=== PATIENT | male | born 2005 | race Caucasian/White ===

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

== ENCOUNTER 2023-08-11 11:52 | Emergency (ER) | payer BC ==
[~2023-08-11] VITALS: Ht 180.3 cm; Wt 81.6 kg
[~2023-08-11 11:52] MED LIST: OMEP40CA20 PO; ONDA-8 TL
[2023-08-11] MEDS ORDERED: ONDANSETRON HCL 4 MG/2 ML VIAL IVP ONE (13:30)
[2023-08-11] MEDS ORDERED: NACL 0.9% 1,000 ML IV ONE (13:30)
[2023-08-11 13:39] VITALS: BP_SYST 120; PULSE 105; RESP 18; TEMP 98.8; O2SAT 99
[2023-08-11 14:10] LABS: BASOPHILS # (AUTO) 0.1 K/uL (0.0-0.2); BASOPHILS % (AUTO) 0.5 % (0.0-2.0); EOSINOPHILS % (AUTO) 0.2 % (0.0-4.0); HEMATOCRIT 52.5 % (36-54); HEMOGLOBIN 18.1 g/dL (14.0-18.0); LYMPHOCYTES # (AUTO) 2.6 K/uL (1.0-5.5); LYMPHOCYTES % (AUTO) 18.5 % (20.5-51.5); MEAN CORPUSCULAR HEMOGLOBIN 29 pg (27-31); MEAN CORPUSCULAR HGB CONC 35 % (32-36); MEAN CORPUSCULAR VOLUME 85 fL (79.0-98.0); MONOCYTES # (AUTO) 1.3 K/uL (0.0-1.0); MONOCYTES % (AUTO) 9.3 % (1.7-9.3); NEUTROPHILS % (AUTO) 71.5 % (40.0-70.0); PLATELET COUNT (AUTO) 283 K/uL (130-430); RED CELL DISTRIBUTION WIDTH 13.3 % (9.0-15.0)
[2023-08-11] MEDS ORDERED: MORPHINE 4 MG INJ. 4 MG/ML VIAL IVP ONE ×2 (14:15→15:45)
[2023-08-11 14:23] LABS: ALBUMIN 4.8 g/dL (3.4-4.8); BILIRUBIN,DIRECT 0.3 mg/dL (0.0-0.3); CALCIUM 9.9 mg/dL (8.4-11.0); CREATININE 1.31 mg/dL (0.55-1.30); TOTAL BILIRUBIN 1.2 mg/dL (0.0-1.0); TOTAL PROTEIN, SERUM 8.3 g/dL (6.4-8.3)
[2023-08-11 14:26] LABS: POTASSIUM 2.6 mmol/L (3.5-5.1)
[2023-08-11] MEDS ORDERED: POTASSIUM CHLORIDE 20 MEQ TABLET.ER PO ONE (14:45)
[2023-08-11] MEDS ORDERED: KCL 20 mEq in 100 mL (PREMIX) 100 ML IV ONE (14:45)
[2023-08-11] MEDS ORDERED: DIPHENHYDRAMINE INJ 50 MG/ML VIAL IVP ONE ×2 (15:45→16:00)
[2023-08-11] MEDS ORDERED: METOCLOPRAMIDE HCL 10 MG/2 ML VIAL IVP ONE (15:45)
[2023-08-11] MEDS ORDERED: DIPHENHYDRAMINE INJ 50 MG/ML VIAL ONE (16:05)
[2023-08-11] MEDS ORDERED: ONDA-8 TL (16:40)
[2023-08-11 17:17] VITALS: BP_SYST 123; PULSE 110; RESP 22; TEMP 98.7; O2SAT 97
== END 2023-08-11 17:10 | disposition home or self-care (01) ==
LOC: SED 11:52
DX: R10.13 Epigastric pain (principal); R11.2 Nausea with vomiting, unspecified; E87.6 Hypokalemia; Z79.899 Other long term (current) drug therapy
CPT/HCPCS: 99285; 74177; 96365; 96375; 96361; 80076; 80048; 83690; 85025; 36415; 76376; 96376; J1200; J2765; J2405; J3480; J2270; Q9967; J7030

== ENCOUNTER 2024-02-07 08:16 | Inpatient (IN) | payer BC ==
[~2024-02-07] VITALS: Ht 170.2 cm; Wt 86.2 kg
[2024-02-07 08:19] VITALS: BP_SYST 124; PULSE 105; RESP 18; TEMP 98.3; O2SAT 98
[2024-02-07] MEDS: ONDANSETRON 4 MG ODT TAB PO ONE (08:46)
[2024-02-07 08:55] LABS: BASOPHILS % (AUTO) 0.2 % (0.0-2.0); HEMATOCRIT 47.6 % (36-54); HEMOGLOBIN 17.1 g/dL (14.0-18.0); LYMPHOCYTES # (AUTO) 1.4 K/uL (1.0-5.5); LYMPHOCYTES % (AUTO) 10.9 % (20.5-51.5); MEAN CORPUSCULAR HEMOGLOBIN 30 pg (27-31); MEAN CORPUSCULAR HGB CONC 36 % (32-36); MEAN CORPUSCULAR VOLUME 84 fL (79.0-98.0); MONOCYTES # (AUTO) 1.1 K/uL (0.0-1.0); MONOCYTES % (AUTO) 8.4 % (1.7-9.3); NEUTROPHILS # (AUTO) 10.3 K/uL (1.8-7.7); NEUTROPHILS % (AUTO) 80.5 % (40.0-70.0); PLATELET COUNT (AUTO) 237 K/uL (130-430); RED BLOOD CELL COUNT(AUTO) 5.66 MIL/uL (4.2-6.2); RED CELL DISTRIBUTION WIDTH 14.1 % (9.0-15.0); WHITE BLOOD COUNT (AUTO) 12.8 K/uL (4.5-11.0)
[2024-02-07 09:11] LABS: INR 1.3 (0.80-1.20); PROTHROMBIN TIME 13.1 SECS (9.5-12.5)
[2024-02-07 09:30] LABS: ALANINE AMINOTRANSFERASE 41 U/L (12-78); ALBUMIN 4.7 g/dL (3.4-4.8); AMYLASE 40 U/L (0-100); ANION GAP 17 (5-15); ASPARTATE AMINOTRANSFERASE 26 U/L (10-37); BILIRUBIN,DIRECT 0.2 mg/dL (0.0-0.3); CALCIUM 9.9 mg/dL (8.4-11.0); CARBON DIOXIDE 23 mmol/L (23-29); CHLORIDE 100 mmol/L (98-107); CREATININE 1.32 mg/dL (0.55-1.30); GFR AFRICAN AMERICAN 89 mL/min (>90); GLUCOSE 124 mg/dL (74-106); LIPASE 30 U/L (16-77); SODIUM SERUM 140 mmol/L (136-145); TOTAL BILIRUBIN 0.9 mg/dL (0.0-1.0); TOTAL PROTEIN, SERUM 8.3 g/dL (6.4-8.3); UREA NITROGEN, BLOOD 13 mg/dL (8-21)
[2024-02-07 09:31] LABS: GFR NON AFRICAN-AMERICAN 73 mL/min (>90)
[2024-02-07 09:33] LABS: POTASSIUM 2.7 mmol/L (3.5-5.1)
[2024-02-07] MEDS: ONDANSETRON HCL 4 MG/2 ML VIAL IVP ONE (09:44)
[2024-02-07] MEDS: POTASSIUM CHLORIDE 20 MEQ/PKT PACKET PO ONE (09:44)
[2024-02-07] MEDS: NACL 0.9% 1,000 ML IV ONE (09:44)
[2024-02-07] MEDS: HALOPERIDOL LACTATE 5 MG/ML VIAL IM ONE (09:45)
[2024-02-07 09:55] LABS: ACETONE, SERUM NEGATIVE (NEGATIVE)
[2024-02-07] MEDS: D5NS 1,000 ML IV SCH (11:45)
[2024-02-07 12:41] VITALS: BP_SYST 155; PULSE 89; RESP 20
[2024-02-07] MEDS ORDERED: ACETAMINOPHEN 325 MG TABLET PO PRN (13:30)
[2024-02-07] MEDS ORDERED: NALOXONE HCL 0.4 MG/ML AMP (NARCAN) IVP PRN (13:30)
[2024-02-07] MEDS ORDERED: MORPHINE 2 MG/ML INJ. SYRINGE IVP PRN (13:30)
[2024-02-07] MEDS: MORPHINE 2 MG/ML INJ. SYRINGE IVP PRN (13:38)
[2024-02-07 14:28] VITALS: O2SAT 99
[2024-02-07 16:00] VITALS: BP_SYST 145; PULSE 84; RESP 18; TEMP 98.8; O2SAT 98
[2024-02-07] MEDS: PANTOPRAZOLE SODIUM 40 MG TAB PO ONE (17:16)
[2024-02-07 17:56] LABS: BILIRUBIN,URINE 1+ (NEGATIVE); BLOOD, URINE NEGATIVE (NEGATIVE); CLARITY/URINE CLEAR (CLEAR); COLOR,URINE YELLOW (YELLOW); GLUCOSE,URINE NEGATIVE (NEGATIVE); KETONES,URINE 2+ (NEGATIVE); LEUKOCYTE ESTERASE ,URINE NEGATIVE (NEGATIVE); NITRITE, URINE NEGATIVE (NEGATIVE); PROTEIN URINE 1+ (NEGATIVE); UROBILINOGEN,URINE 0.2 (0.2-1.0)
[2024-02-07 18:15] LABS: BACTERIA,URINE RARE /HPF (None Seen); MUCUS,URINE 1+ /LPF (None Seen); RBC,URINE NONE SEEN /HPF (0-3); WBC,URINE 0-3 /HPF (0-3)
[2024-02-07] MEDS ORDERED: POTASSIUM CHLORIDE 40 MEQ in NS 250 ML IV ONE (19:45)
[2024-02-07 20:00] VITALS: BP_SYST 118; PULSE 82; RESP 18; TEMP 98.4; O2SAT 95
[2024-02-07] MEDS: KCL 20 mEq in 100 mL (PREMIX) 100 ML IV NR (20:31)
[2024-02-07] MEDS: ONDANSETRON HCL 4 MG/2 ML VIAL IVP PRN (21:44)
[2024-02-08 06:38] LABS: BASOPHILS % (AUTO) 0.4 % (0.0-2.0); EOSINOPHILS % (AUTO) 0.2 % (0.0-4.0); HEMATOCRIT 45.5 % (36-54); LYMPHOCYTES # (AUTO) 1.9 K/uL (1.0-5.5); LYMPHOCYTES % (AUTO) 22.7 % (20.5-51.5); MEAN CORPUSCULAR HEMOGLOBIN 30 pg (27-31); MEAN CORPUSCULAR HGB CONC 35 % (32-36); MEAN CORPUSCULAR VOLUME 85 fL (79.0-98.0); MONOCYTES # (AUTO) 0.7 K/uL (0.0-1.0); MONOCYTES % (AUTO) 8.6 % (1.7-9.3); NEUTROPHILS # (AUTO) 5.8 K/uL (1.8-7.7); NEUTROPHILS % (AUTO) 68.1 % (40.0-70.0); PLATELET COUNT (AUTO) 204 K/uL (130-430); RED BLOOD CELL COUNT(AUTO) 5.36 MIL/uL (4.2-6.2); WHITE BLOOD COUNT (AUTO) 8.4 K/uL (4.5-11.0)
[2024-02-08 07:19] LABS: CALCIUM 9.1 mg/dL (8.4-11.0); CREATININE 1.29 mg/dL (0.55-1.30); PHOSPHORUS 2.6 mg/dL (2.7-4.5); POTASSIUM 3.6 mmol/L (3.5-5.1)
[2024-02-08 08:00] VITALS: BP_SYST 122; PULSE 94; RESP 18; TEMP 98.9; O2SAT 100; O2SAT 99
[2024-02-08] MEDS: MIDAZOLAM HCL 5 MG/5 ML VIAL ONE (08:42)
[2024-02-08] MEDS: SIMETHICONE 40 MG/0.6 ML ML ONE (08:42)
[2024-02-08] MEDS: MEPERIDINE 100 MG INJ. 100 MG/ML VIAL ONE (08:42)
[2024-02-08] MEDS: DIPHENHYDRAMINE INJ 50 MG/ML VIAL ONE (08:43)
[2024-02-08] MEDS ORDERED: PANTOPRAZOLE SODIUM 40 MG TAB PO SCH (09:00)
[2024-02-08] MEDS: PANTOPRAZOLE SODIUM 40 MG TAB PO SCH (09:00)
[2024-02-08 12:00] VITALS: BP_SYST 122; PULSE 88; RESP 18; TEMP 98.6; O2SAT 99
[2024-02-08] MEDS ORDERED: ACETAMINOPHEN 325 MG TABLET PO PRN ×2 (13:45→14:00)
[2024-02-08] MEDS ORDERED: NALOXONE HCL 0.4 MG/ML AMP (NARCAN) IVP PRN ×2 (13:45)
[2024-02-08] MEDS: HYDROcodone/ACETAMIN 10-325 MG TAB PO PRN (14:58)
[2024-02-08 16:00] VITALS: BP_SYST 124; PULSE 84; RESP 16; TEMP 98.6; O2SAT 99
[2024-02-08 19:00] VITALS: O2SAT 100
[2024-02-08 20:00] VITALS: BP_SYST 116; PULSE 90; RESP 18; TEMP 97.5; O2SAT 95
[2024-02-08] MEDS: HYDROcodone/ACETAMIN 5-325 MG TAB (NORCO/ VICODIN) PO PRN (21:58)
[2024-02-09 00:41] VITALS: BP_SYST 109; PULSE 66; RESP 18; TEMP 97.2; O2SAT 97
[2024-02-09] MEDS: LORazepam 2 MG/ML VIAL IVP PRN (04:29)
[2024-02-09 06:00] LABS: ALBUMIN 4.4 g/dL (3.4-4.8); CALCIUM 9.3 mg/dL (8.4-11.0); CREATININE 1.16 mg/dL (0.55-1.30); POTASSIUM 3.7 mmol/L (3.5-5.1); TOTAL PROTEIN, SERUM 7.8 g/dL (6.4-8.3)
[2024-02-09 06:01] LABS: BASOPHILS % (AUTO) 0.3 % (0.0-2.0); EOSINOPHILS % (AUTO) 0.2 % (0.0-4.0); HEMATOCRIT 49.5 % (36-54); HEMOGLOBIN 17.3 g/dL (14.0-18.0); LYMPHOCYTES # (AUTO) 1.6 K/uL (1.0-5.5); LYMPHOCYTES % (AUTO) 14.2 % (20.5-51.5); MEAN CORPUSCULAR HEMOGLOBIN 30 pg (27-31); MEAN CORPUSCULAR HGB CONC 35 % (32-36); MEAN CORPUSCULAR VOLUME 85 fL (79.0-98.0); MONOCYTES # (AUTO) 0.7 K/uL (0.0-1.0); MONOCYTES % (AUTO) 6.6 % (1.7-9.3); NEUTROPHILS # (AUTO) 8.8 K/uL (1.8-7.7); NEUTROPHILS % (AUTO) 78.7 % (40.0-70.0); PLATELET COUNT (AUTO) 219 K/uL (130-430); RED BLOOD CELL COUNT(AUTO) 5.82 MIL/uL (4.2-6.2); WHITE BLOOD COUNT (AUTO) 11.1 K/uL (4.5-11.0)
[2024-02-09 08:17] VITALS: BP_SYST 133; PULSE 93; RESP 18; TEMP 96.9; O2SAT 95
[2024-02-09 09:30] VITALS: O2SAT 95
[2024-02-09 12:30] VITALS: BP_SYST 128; PULSE 87; RESP 18; TEMP 97.1; O2SAT 97
[2024-02-09 16:45] VITALS: BP_SYST 126; PULSE 78; RESP 20; TEMP 97.2; O2SAT 95
[2024-02-09] MEDS ORDERED: DEXTROSE 50% JECT 50 ML DISP.SYRIN IVP PRN (17:00)
[2024-02-09] MEDS ORDERED: INSULIN REGULAR, HUMAN 100 UNITS/ML, 3 ML VIAL (humuLIN R) SUBCUT PRN (17:00)
[2024-02-09] MEDS ORDERED: GLUCOSE (DEXTROSE) ORAL GEL -Adults PO PRN (17:00)
[2024-02-09 20:00] VITALS: BP_SYST 133; PULSE 92; RESP 20; TEMP 98.6; O2SAT 95
[2024-02-09] MEDS: INSULIN GLARGINE 100 UNITS/ML, 10 ML VIAL SUBCUT SCH (22:31)
[2024-02-10] VITALS: BP_SYST 131; PULSE 90; RESP 20; TEMP 98.4; O2SAT 96
[2024-02-10 01:58] LABS: CANNABINOID, URINE POSITIVE (NEG <=50)
[2024-02-10 01:59] LABS: BARBITURATE, URINE NEGATIVE (NEG <=200); BENZODIAZEPINE, URINE POSITIVE (NEG <=150); COCAINE, URINE NEGATIVE (NEG <=150); METHAMPHETAMINES SCREEN,URINE NEGATIVE (NEG <=500); OPIATE, URINE POSITIVE (NEG <=100); PHENCYCLIDINE SCREEN,URINE NEGATIVE (NEG <=25); UR TRICYCLIC ANTIDEPRESSANTS NEGATIVE (NEG <=300); URINE AMPHETAMINE NEGATIVE (NEG <=500); URINE METHADONE NEGATIVE (NEG <=200); URINE OXYCODONE SCREEN NEGATIVE (NEG <=100)
[2024-02-10 06:44] LABS: BASOPHILS % (AUTO) 0.3 % (0.0-2.0); EOSINOPHILS % (AUTO) 0.5 % (0.0-4.0); HEMATOCRIT 46.9 % (36-54); HEMOGLOBIN 16.2 g/dL (14.0-18.0); LYMPHOCYTES # (AUTO) 1.4 K/uL (1.0-5.5); MEAN CORPUSCULAR HEMOGLOBIN 30 pg (27-31); MEAN CORPUSCULAR HGB CONC 35 % (32-36); MEAN CORPUSCULAR VOLUME 86 fL (79.0-98.0); MONOCYTES # (AUTO) 0.8 K/uL (0.0-1.0); MONOCYTES % (AUTO) 10.7 % (1.7-9.3); NEUTROPHILS # (AUTO) 5.5 K/uL (1.8-7.7); NEUTROPHILS % (AUTO) 70.5 % (40.0-70.0); PLATELET COUNT (AUTO) 195 K/uL (130-430); RED BLOOD CELL COUNT(AUTO) 5.47 MIL/uL (4.2-6.2); RED CELL DISTRIBUTION WIDTH 14.3 % (9.0-15.0); WHITE BLOOD COUNT (AUTO) 7.8 K/uL (4.5-11.0)
[2024-02-10 07:32] LABS: ALBUMIN 3.8 g/dL (3.4-4.8); CALCIUM 8.7 mg/dL (8.4-11.0); CREATININE 1.14 mg/dL (0.55-1.30); POTASSIUM 3.2 mmol/L (3.5-5.1); TOTAL BILIRUBIN 0.7 mg/dL (0.0-1.0)
[2024-02-10] MEDS: POTASSIUM CHLORIDE 20 MEQ TABLET.ER PO ONE (13:59)
[2024-02-10 20:00] VITALS: O2SAT 98
[2024-02-10 22:00] VITALS: BP_SYST 120; PULSE 62; RESP 18; TEMP 97.6
[2024-02-11] VITALS: BP_SYST 116; PULSE 61; RESP 18; TEMP 97.8; O2SAT 97
[2024-02-11 05:49] LABS: BASOPHILS % (AUTO) 0.7 % (0.0-2.0); EOSINOPHILS # (AUTO) 0.1 K/uL (0.0-0.4); EOSINOPHILS % (AUTO) 1.9 % (0.0-4.0); HEMATOCRIT 45.8 % (36-54); HEMOGLOBIN 15.8 g/dL (14.0-18.0); LYMPHOCYTES # (AUTO) 2.9 K/uL (1.0-5.5); LYMPHOCYTES % (AUTO) 41.7 % (20.5-51.5); MEAN CORPUSCULAR HEMOGLOBIN 30 pg (27-31); MEAN CORPUSCULAR HGB CONC 35 % (32-36); MEAN CORPUSCULAR VOLUME 86 fL (79.0-98.0); MONOCYTES # (AUTO) 0.6 K/uL (0.0-1.0); MONOCYTES % (AUTO) 8.7 % (1.7-9.3); NEUTROPHILS # (AUTO) 3.3 K/uL (1.8-7.7); PLATELET COUNT (AUTO) 187 K/uL (130-430); RED BLOOD CELL COUNT(AUTO) 5.32 MIL/uL (4.2-6.2); RED CELL DISTRIBUTION WIDTH 14.1 % (9.0-15.0)
[2024-02-11 06:48] LABS: ALBUMIN 3.7 g/dL (3.4-4.8); CREATININE 1.37 mg/dL (0.55-1.30); POTASSIUM 3.7 mmol/L (3.5-5.1); TOTAL BILIRUBIN 0.7 mg/dL (0.0-1.0); TOTAL PROTEIN, SERUM 6.8 g/dL (6.4-8.3)
[2024-02-11 08:00] VITALS: BP_SYST 131; PULSE 85; RESP 20; TEMP 97.1; O2SAT 99
[2024-02-11 12:03] VITALS: BP_SYST 128; PULSE 74; RESP 18; TEMP 98.2; O2SAT 98
[2024-02-11 13:26] VITALS: BP_SYST 128; PULSE 85; RESP 20; TEMP 97.1; O2SAT 99
[2024-02-11] MEDS ORDERED: METF-379 PO (13:38)
[2024-02-11] MEDS ORDERED: ONDA-8 TL (13:38)
[2024-02-11] MEDS ORDERED: INSU100I75 SUBCUT (13:38)
[2024-02-11] MEDS ORDERED: PRO40 PO (13:38)
== END 2024-02-11 14:30 | disposition home or self-care (01) | DRG 638 ==
LOC: SED 08:16 → SMU 10:25
PROVIDERS: ADMIT Preventive Medicine Preventive Medicine/Occupational Environmental Medicine; ATTEND Specialist
PROC: 0DB68ZX Excision of Stomach, Via Natural or Artificial Opening Endoscopic, Diagnostic (ICD-10-PCS; principal; 2024-02-08 08:45)
DX: E11.65 Type 2 diabetes mellitus with hyperglycemia (principal); N17.9 Acute kidney failure, unspecified; R65.10 Systemic inflammatory response syndrome (SIRS) of non-infectious origin without acute organ dysfunction; K20.90 Esophagitis, unspecified without bleeding; F12.188 Cannabis abuse with other cannabis-induced disorder; E87.6 Hypokalemia; K29.70 Gastritis, unspecified, without bleeding; K76.0 Fatty (change of) liver, not elsewhere classified; D72.829 Elevated white blood cell count, unspecified; K42.9 Umbilical hernia without obstruction or gangrene; Z79.899 Other long term (current) drug therapy; Z88.8 Allergy status to other drugs, medicaments and biological substances
CPT/HCPCS: 36415; 43239; 71045; 74018; 76700; 80048; 80053; 80076; 80307; 81000; 81001; 81015; 82009; 82150; 82948; 83037; 83605; 83690; 83735; 84100; 84132; 85025; 85610; 85730; 87040; 87086; 88305; 88312; 88313; 96361; 96374; 99285; J1200; J1815; J2060; J2175; J2250; J2270; J2405; J3480; Q0162; Q9967

== ENCOUNTER 2024-04-08 22:31 | Emergency (ER) | payer BC ==
[~2024-04-08] VITALS: Ht 170.2 cm; Wt 86.2 kg
[~2024-04-08 22:31] MED LIST changes: +INSU100I75 SUBCUT; +METF-379 PO; -OMEP40CA20 PO; +PRO40 PO
[2024-04-08 22:42] VITALS: PULSE 83; RESP 22; TEMP 98; O2SAT 100
[2024-04-08] MEDS: NACL 0.9% 1,000 ML IV ONE (23:50)
[2024-04-08] MEDS: ONDANSETRON HCL 4 MG/2 ML VIAL IVP ONE (23:52)
[2024-04-08] MEDS: MORPHINE 4 MG INJ. 4 MG/ML VIAL IVP ONE (23:54)
[2024-04-08] MEDS: HALOPERIDOL LACTATE 5 MG/ML VIAL IM ONE (23:57)
[2024-04-09 00:29] LABS: BASOPHILS # (AUTO) 0.1 K/uL (0.0-0.2); BASOPHILS % (AUTO) 0.5 % (0.0-2.0); HEMATOCRIT 50.9 % (36-54); HEMOGLOBIN 17.8 g/dL (14.0-18.0); LYMPHOCYTES # (AUTO) 0.8 K/uL (1.0-5.5); LYMPHOCYTES % (AUTO) 6.1 % (20.5-51.5); MEAN CORPUSCULAR HEMOGLOBIN 31 pg (27-31); MEAN CORPUSCULAR HGB CONC 35 % (32-36); MEAN CORPUSCULAR VOLUME 87 fL (79.0-98.0); MONOCYTES # (AUTO) 0.4 K/uL (0.0-1.0); MONOCYTES % (AUTO) 3.4 % (1.7-9.3); NEUTROPHILS # (AUTO) 11.2 K/uL (1.8-7.7); PLATELET COUNT (AUTO) 245 K/uL (130-430); RED BLOOD CELL COUNT(AUTO) 5.83 MIL/uL (4.2-6.2); RED CELL DISTRIBUTION WIDTH 14.2 % (9.0-15.0); WHITE BLOOD COUNT (AUTO) 12.5 K/uL (4.5-11.0)
[2024-04-09 01:09] LABS: ALBUMIN 5.3 g/dL (3.4-4.8); BILIRUBIN,DIRECT 0.2 mg/dL (0.0-0.3); CALCIUM 10.7 mg/dL (8.4-11.0); CREATININE 1.33 mg/dL (0.55-1.30); POTASSIUM 3.6 mmol/L (3.5-5.1); TOTAL PROTEIN, SERUM 8.8 g/dL (6.4-8.3)
[2024-04-09] MEDS: NACL 0.9% 1,000 ML IV ONE (02:18)
[2024-04-09] MEDS: MORPHINE 4 MG INJ. 4 MG/ML VIAL IVP ONE (02:19)
[2024-04-09] MEDS: ONDANSETRON HCL 4 MG/2 ML VIAL IVP ONE (02:22)
[2024-04-09] MEDS ORDERED: ONDA-8 TL (03:13)
[2024-04-09 03:27] VITALS: BP_SYST 125; PULSE 90; RESP 20; TEMP 98.6; O2SAT 97
== END 2024-04-09 03:20 | disposition home or self-care (01) ==
LOC: SED 22:31
DX: R11.15 Cyclical vomiting syndrome unrelated to migraine (principal); D72.828 Other elevated white blood cell count; N17.9 Acute kidney failure, unspecified; Z88.5 Allergy status to narcotic agent; F12.90 Cannabis use, unspecified, uncomplicated; Z88.8 Allergy status to other drugs, medicaments and biological substances; Z79.899 Other long term (current) drug therapy; Z79.2 Long term (current) use of antibiotics
CPT/HCPCS: 99285; 96374; 96361 ×2; 96375; 80076; 80048; 83690; 85025; 36415; 96376; J2405 ×2; J2270 ×2; J7030 ×2; J1630

== ENCOUNTER 2024-05-03 16:06 | Emergency (ER) | payer BC ==
[~2024-05-03] VITALS: Ht 165.1 cm; Wt 72.6 kg
[2024-05-03 16:09] VITALS: BP_SYST 135; PULSE 133; RESP 18; TEMP 98.3; O2SAT 98
[2024-05-03 17:01] LABS: BASOPHILS # (AUTO) 0.1 K/uL (0.0-0.2); HEMOGLOBIN 17.9 g/dL (14.0-18.0); MEAN CORPUSCULAR HEMOGLOBIN 30 pg (27-31); WHITE BLOOD COUNT (AUTO) 13.2 K/uL (4.5-11.0)
[2024-05-03 17:05] LABS: BASOPHILS % (AUTO) 0.7 % (0.0-2.0); HEMATOCRIT 51.2 % (36-54); LYMPHOCYTES # (AUTO) 2.7 K/uL (1.0-5.5); LYMPHOCYTES % (AUTO) 20.2 % (20.5-51.5); MEAN CORPUSCULAR HGB CONC 35 % (32-36); MEAN CORPUSCULAR VOLUME 86 fL (79.0-98.0); MONOCYTES # (AUTO) 1.6 K/uL (0.0-1.0); MONOCYTES % (AUTO) 11.8 % (1.7-9.3); NEUTROPHILS # (AUTO) 8.9 K/uL (1.8-7.7); NEUTROPHILS % (AUTO) 67.3 % (40.0-70.0); PLATELET COUNT (AUTO) 247 K/uL (130-430); RED BLOOD CELL COUNT(AUTO) 5.92 MIL/uL (4.2-6.2); RED CELL DISTRIBUTION WIDTH 13.7 % (9.0-15.0)
[2024-05-03 17:13] LABS: ALBUMIN 5.1 g/dL (3.4-4.8); CALCIUM 10.3 mg/dL (8.4-11.0); CREATININE 1.48 mg/dL (0.55-1.30); POTASSIUM 3.4 mmol/L (3.5-5.1); TOTAL PROTEIN, SERUM 8.6 g/dL (6.4-8.3)
[2024-05-03] MEDS: ONDANSETRON HCL 4 MG/2 ML VIAL IVP ONE (19:00)
[2024-05-03] MEDS: NACL 0.9% 1,000 ML IV ONE (19:00)
[2024-05-03] MEDS ORDERED: ONDANSETRON HCL 4 MG/2 ML VIAL ONE (21:40)
[2024-05-03 22:32] LABS: BILIRUBIN,URINE 1+ (NEGATIVE); BLOOD, URINE NEGATIVE (NEGATIVE); CLARITY/URINE CLEAR (CLEAR); COLOR,URINE YELLOW (YELLOW); GLUCOSE,URINE NEGATIVE (NEGATIVE); KETONES,URINE 2+ (NEGATIVE); LEUKOCYTE ESTERASE ,URINE NEGATIVE (NEGATIVE); NITRITE, URINE NEGATIVE (NEGATIVE); PH,URINE 6.5 (5.0-8.0); PROTEIN URINE TRACE (NEGATIVE); UROBILINOGEN,URINE 0.2 (0.2-1.0)
[2024-05-03] MEDS ORDERED: ONDA-8 TL (22:36)
[2024-05-03] MEDS ORDERED: CEPH250C PO (22:42)
[2024-05-03 22:50] LABS: BARBITURATE, URINE NEGATIVE (NEG <=200); BENZODIAZEPINE, URINE NEGATIVE (NEG <=150); CANNABINOID, URINE POSITIVE (NEG <=50); COCAINE, URINE NEGATIVE (NEG <=150); METHAMPHETAMINES SCREEN,URINE NEGATIVE (NEG <=500); OPIATE, URINE NEGATIVE (NEG <=100); PHENCYCLIDINE SCREEN,URINE NEGATIVE (NEG <=25); URINE AMPHETAMINE NEGATIVE (NEG <=500); URINE METHADONE NEGATIVE (NEG <=200); URINE OXYCODONE SCREEN NEGATIVE (NEG <=100)
[2024-05-03 22:51] LABS: UR TRICYCLIC ANTIDEPRESSANTS NEGATIVE (NEG <=300)
[2024-05-03 22:52] LABS: RBC,URINE NONE SEEN /HPF (0-3)
[2024-05-03 22:53] LABS: BACTERIA,URINE FEW /HPF (None Seen); MUCUS,URINE 1+ /LPF (None Seen); WBC,URINE 0-3 /HPF (0-3)
[2024-05-03] MEDS: cephALEXin 500 MG CAPSULE PO ONE (22:55)
[2024-05-03 23:06] VITALS: BP_SYST 129; PULSE 67; RESP 20; TEMP 98; O2SAT 98
== END 2024-05-03 22:54 | disposition home or self-care (01) ==
LOC: SED 16:06
DX: R11.2 Nausea with vomiting, unspecified (principal); R10.84 Generalized abdominal pain; R53.1 Weakness; E11.9 Type 2 diabetes mellitus without complications; Z88.5 Allergy status to narcotic agent; Z88.8 Allergy status to other drugs, medicaments and biological substances; Z79.899 Other long term (current) drug therapy
CPT/HCPCS: 99285; 74176; 96374; 96361; 80307; 80053; 81001; 83690; 85025; 36415; J2405; J7030; 81000; 81015

== ENCOUNTER 2024-05-04 21:39 | Emergency (ER) | payer BC ==
[~2024-05-04] VITALS: Ht 170.2 cm; Wt 81.6 kg
[~2024-05-04 21:39] MED LIST changes: +CEPH250C PO
[2024-05-04 21:47] VITALS: BP_SYST 149; PULSE 91; RESP 24; TEMP 98.4; O2SAT 96
[2024-05-04] MEDS: NACL 0.9% 1,000 ML IV ONE ×2 (22:22→23:35)
[2024-05-04] MEDS: ONDANSETRON HCL 4 MG/2 ML VIAL IVP ONE (22:22)
[2024-05-04 22:37] LABS: BASOPHILS % (AUTO) 0.5 % (0.0-2.0); EOSINOPHILS % (AUTO) 0.1 % (0.0-4.0); HEMATOCRIT 48.2 % (36-54); HEMOGLOBIN 17.1 g/dL (14.0-18.0); LYMPHOCYTES % (AUTO) 19.6 % (20.5-51.5); MEAN CORPUSCULAR HEMOGLOBIN 30 pg (27-31); MEAN CORPUSCULAR HGB CONC 35 % (32-36); MEAN CORPUSCULAR VOLUME 86 fL (79.0-98.0); MONOCYTES % (AUTO) 9.6 % (1.7-9.3); NEUTROPHILS # (AUTO) 7.1 K/uL (1.8-7.7); NEUTROPHILS % (AUTO) 70.2 % (40.0-70.0); PLATELET COUNT (AUTO) 208 K/uL (130-430); RED BLOOD CELL COUNT(AUTO) 5.63 MIL/uL (4.2-6.2); RED CELL DISTRIBUTION WIDTH 13.8 % (9.0-15.0); WHITE BLOOD COUNT (AUTO) 10.1 K/uL (4.5-11.0)
[2024-05-04 22:56] LABS: ALBUMIN 4.9 g/dL (3.4-4.8); BILIRUBIN,DIRECT 0.2 mg/dL (0.0-0.3); CALCIUM 9.8 mg/dL (8.4-11.0); CREATININE 1.45 mg/dL (0.55-1.30); TOTAL BILIRUBIN 0.9 mg/dL (0.0-1.0)
[2024-05-04] MEDS: DIPHENHYDRAMINE INJ 50 MG/ML VIAL IVP ONE (23:36)
[2024-05-05] MEDS: NACL 0.9% 1,000 ML IV ONE (00:53)
[2024-05-05] MEDS: ONDANSETRON HCL 4 MG/2 ML VIAL IVP ONE (00:54)
[2024-05-05] MEDS: MORPHINE 4 MG INJ. 4 MG/ML VIAL IVP ONE (00:55)
[2024-05-05] MEDS: LORazepam 2 MG/ML VIAL IVP ONE (01:49)
[2024-05-05 02:28] LABS: BARBITURATE, URINE NEGATIVE (NEG <=200); BENZODIAZEPINE, URINE NEGATIVE (NEG <=150); CANNABINOID, URINE POSITIVE (NEG <=50); COCAINE, URINE NEGATIVE (NEG <=150); METHAMPHETAMINES SCREEN,URINE NEGATIVE (NEG <=500); OPIATE, URINE NEGATIVE (NEG <=100); PHENCYCLIDINE SCREEN,URINE NEGATIVE (NEG <=25); URINE AMPHETAMINE NEGATIVE (NEG <=500); URINE METHADONE NEGATIVE (NEG <=200); URINE OXYCODONE SCREEN NEGATIVE (NEG <=100)
[2024-05-05 02:29] LABS: UR TRICYCLIC ANTIDEPRESSANTS NEGATIVE (NEG <=300)
[2024-05-05 04:16] VITALS: BP_SYST 130; PULSE 85; RESP 20; TEMP 98.5; O2SAT 99
== END 2024-05-05 04:16 | disposition home or self-care (01) ==
LOC: SED 21:39
DX: R11.15 Cyclical vomiting syndrome unrelated to migraine (principal); R10.9 Unspecified abdominal pain; E11.9 Type 2 diabetes mellitus without complications; Z88.5 Allergy status to narcotic agent; Z88.8 Allergy status to other drugs, medicaments and biological substances; Z79.899 Other long term (current) drug therapy; Z79.2 Long term (current) use of antibiotics
CPT/HCPCS: 99284; 96374; 96361 ×2; 96375 ×2; 80307; 80076; 80048; 83690; 85025; 36415; 96376; J1200; J2405 ×2; J7030 ×2; J2060; J2270

== ENCOUNTER 2024-05-07 20:54 | Emergency (ER) | payer BC ==
[~2024-05-07] VITALS: Ht 170.2 cm; Wt 81.6 kg
[2024-05-07 21:18] VITALS: BP_SYST 144; PULSE 94; RESP 18; TEMP 97.8; O2SAT 98
[2024-05-07] MEDS: NACL 0.9% 2,000 ML IV ONE (23:25)
[2024-05-07] MEDS: LORazepam 2 MG/ML VIAL IVP ONE (23:26)
[2024-05-07] MEDS: DIPHENHYDRAMINE INJ 50 MG/ML VIAL IVP ONE (23:27)
[2024-05-07] MEDS: ONDANSETRON HCL 4 MG/2 ML VIAL IVP ONE (23:27)
[2024-05-07] MEDS: FAMOTIDINE PF 20 MG/2 ML VIAL IVP ONE (23:28)
[2024-05-07 23:38] LABS: HEMOGLOBIN 18.1 g/dL (14.0-18.0); LYMPHOCYTES # (AUTO) 1.1 K/uL (1.0-5.5)
[2024-05-07 23:41] LABS: ALBUMIN 5.2 g/dL (3.4-4.8); BILIRUBIN,DIRECT 0.2 mg/dL (0.0-0.3); CALCIUM 10.2 mg/dL (8.4-11.0); CREATININE 1.43 mg/dL (0.55-1.30); POTASSIUM 3.7 mmol/L (3.5-5.1); TOTAL PROTEIN, SERUM 8.6 g/dL (6.4-8.3)
[2024-05-07 23:57] LABS: BASOPHILS % (AUTO) 0.1 % (0.0-2.0); HEMATOCRIT 51.6 % (36-54); LYMPHOCYTES % (AUTO) 10.4 % (20.5-51.5); MEAN CORPUSCULAR HEMOGLOBIN 30 pg (27-31); MEAN CORPUSCULAR HGB CONC 35 % (32-36); MEAN CORPUSCULAR VOLUME 86 fL (79.0-98.0); MONOCYTES # (AUTO) 0.4 K/uL (0.0-1.0); MONOCYTES % (AUTO) 3.4 % (1.7-9.3); NEUTROPHILS # (AUTO) 9.1 K/uL (1.8-7.7); NEUTROPHILS % (AUTO) 86.1 % (40.0-70.0); PLATELET COUNT (AUTO) 246 K/uL (130-430); RED BLOOD CELL COUNT(AUTO) 5.97 MIL/uL (4.2-6.2); RED CELL DISTRIBUTION WIDTH 13.8 % (9.0-15.0); WHITE BLOOD COUNT (AUTO) 10.5 K/uL (4.5-11.0)
[2024-05-08 02:36] VITALS: BP_SYST 116; PULSE 71; RESP 28; TEMP 97.5; O2SAT 95
== END 2024-05-08 02:30 | disposition home or self-care (01) ==
LOC: SED 20:54
DX: R11.15 Cyclical vomiting syndrome unrelated to migraine (principal); R10.13 Epigastric pain; E11.649 Type 2 diabetes mellitus with hypoglycemia without coma; Z88.5 Allergy status to narcotic agent; Z88.8 Allergy status to other drugs, medicaments and biological substances; Z79.899 Other long term (current) drug therapy; Z79.2 Long term (current) use of antibiotics
CPT/HCPCS: 99284; 96374; 96375; 96361; 80076; 80048; 83690; 85025; 36415; J1200; J3490; J2060; J2405; J7030